=== PATIENT | male | born 1955 | race Caucasian/White ===

== ENCOUNTER → 2020-06-12 | Outpatient (CLI) | payer OTHER ==
--- NOTE | 2020-06-12 13:36 | US ---
EXAMINATION TYPE: US scrotum with doppler. Grayscale and color Doppler Duplex imaging performed of t he scrotum. DATE OF EXAM: 06/12/2020 COMPARISON: NONE Bilateral testicular pain x 4 mos. noted after heavy lifting CLINICAL HISTORY: N50.819 Testicular pain. EXAM MEASUREMENTS: TESTICLES: Right Testicle: 5.2 x 3.4 x 2.5 cm Left Testicle: 5.6 x 3.1 x 2.5 cm EPIDIDYMIS HEAD: Right Epididymis: 0.8 x 1.1 x 1.4 cm Left Epididymis: 1.1 x 1.2 x 1.9 cm Doppler performed to assess for testicular vascularity; good bilateral color flow and waveforms are s een. There is no evidence of testicular torsion. Left complex epididymal head cyst is noted = 0.8 x 0.8 x 1.0cm. Presence of varicoceles is noted bilaterally. IMPRESSION: 1. Bilateral varicoceles. 2. There is a complex 1 cm left epididymal head cyst urology consultation suggested.
== END | disposition home or self-care (01) ==
LOC: RADUSWWP 12:51
DX: I86.1 Scrotal varices (principal); N50.3 Cyst of epididymis
CPT/HCPCS: 76870; 93975

== ENCOUNTER → 2023-11-24 | Outpatient (CLI) | payer OTHER ==
--- NOTE | 2023-11-29 17:23 | MR ---
EXAMINATION TYPE: MR shoulder RT wo con DATE OF EXAM: 11/24/2023 COMPARISON: None HISTORY: 68-year-old male M25.511, Rt shoulder pain TECHNIQUE: Multiplanar, multisequence imaging of the right shoulder is performed without contrast. FINDINGS: There is a longitudinal tear of the intracapsular portion of the lung biceps tendon. Marked abnormal increased signal intensity at the junction with the extracapsular portion. Mild to moderate tenosynov ial fluid along the bicipital groove. Diffusely heterogeneous signal of the subscapularis tendon. There is attenuation of the superior half fibers possibly reflecting underlying tear. Severe degenerative change at the acromioclavicular joint with joint space narrowing and bulky margin al spurring. Trace fluid within the subacromial/subdeltoid bursa. Heterogeneous signal throughout the supraspinatus and infraspinatus tendons with scattered small area s of articular sided bursal sided fraying but no high-grade partial or full-thickness tear. No atrophy of the rotator cuff musculature. There is a small glenohumeral joint effusion. Mild articular cartilage thinning along the superior as pect of the humeral head. Effusion extends to the superior subscapularis recess. There is a tear at the biceps anchor extending to the posterior aspect of the superior labrum. No Hill-Sachs deformity or os acromiale. No suspicious bone marrow replacement. IMPRESSION: 1. Diffuse rotator cuff tendinosis. Suspect partial tear of the superior fibers of the subscapularis tendon though the majority of the tendon remains intact. No rotator cuff muscle atrophy. 2. SLAP tear extending to involve the biceps anchor and intracapsular portion of the long head biceps tendon. 3. Severe AC joint OA.
== END | disposition home or self-care (01) ==
LOC: RADMRIMAIN 13:43
PROVIDERS: ATTEND Family Medicine
DX: M19.011 Primary osteoarthritis, right shoulder (principal); M67.813 Other specified disorders of tendon, right shoulder; M75.111 Incomplete rotator cuff tear or rupture of right shoulder, not specified as traumatic

== ENCOUNTER 2023-12-15 20:20 | Observation (INO) | payer OTHER ==
--- NOTE | 2023-12-15 20:56 | ED ---
General Adult HPI - General Chief complaint: Abdominal Pain Stated complaint: Kidney Stone,Septic Time Seen by Provider: 12/15/23 20:25 Source: patient, EMS Mode of arrival: EMS Limitations: no limitations - History of Present Illness Initial comments: 68-year-old male presents to the emergency department as a transfer from [facility] today for urosepsis. Patient states that around 2:30 AM today he started experiencing some abdominal pain radiating to the left groin. He does have a history of kidney stones. He admits to multiple episodes of vomiting today. He denies fever, chills. Admits to normal bowel movements. He has followed with Dr. Galo in the past. - Related Data Allergies Allergy/AdvReac Type Severity Reaction Status Date / Time Penicillins AdvReac Rash/Hives Verified 12/15/23 20:29 Review of Systems ROS Statement: Those systems with pertinent positive or pertinent negative responses have been documented in the HPI. ROS Other: All systems not noted in ROS Statement are negative. Past Medical History Past Medical History: Hyperlipidemia, Hypertension History of Any Multi-Drug Resistant Organisms: None Reported Past Surgical History: Hernia Repair Past Psychological History: No Psychological Hx Reported Smoking Status: Never smoker Past Alcohol Use History: None Reported Past Drug Use History: None Reported General Exam Limitations: no limitations Course Vital Signs 12/15/23 20:25 Temperature 99.1 F Pulse Rate 108 H Respiratory 18 Rate Blood Pressure 167/87 O2 Sat by Pulse 96 Oximetry Medical Decision Making - Medical Decision Making Was pt. sent in by a medical professional or institution (, ES, PARAEDUCATOR, urgent care, hospital, or fpc...) When possible be specific @ -Patient transferred from [facility] Did you speak to anyone other than the patient for history (EMS, parent, family, police, friend...)? What history was obtained from this source @ -No Did you review nursing and triage notes (agree or disagree)? Why? @ -I reviewed and agree with nursing and triage notes Were old charts reviewed (outside hosp., previous admission, EMS record, old EKG, old radiological studies, urgent care reports/EKG's, fpc records)? Report findings @ -Records from [facility] were reviewed including CBC, CMP, UA, EKG, CT UA shows large blood, moderate bacteria Differential Diagnosis (chest pain, altered mental status, abdominal pain women, abdominal pain men, vaginal bleeding, weakness, fever, dyspnea, syncope, headache, dizziness, GI bleed, back pain, seizure, CVA, palpatations, mental health, musculoskeletal)? @ -Differential Abdominal Pain Men: Appendicitis, cholecystitis, diverticulosis, ischemic bowel, pancreatitis, hepatitis, UTI, gastroenteritis, AAA, incarcerated hernia, bowel obstruction, constipation, inflammatory bowel, hepatitis, peptic ulcer disease, splenic infarction, perforated viscus, testicular torsion, this is not meant to be an all-inclusive list EKG interpreted by me (3pts min.). @ -None X-rays interpreted by me (1pt min.). @ -None done CT interpreted by me (1pt min.). @ -None done U/S interpreted by me (1pt. min.). @ -None done What testing was considered but not performed or refused? (CT, X-rays, U/S, labs)? Why? @ -None What meds were considered but not given or refused? Why? @ -None Did you discuss the management of the patient with other professionals (professionals i.e. , PA, PARAEDUCATOR, lab, RT, psych nurse, social sciences research scientist, paste mixer, teacher, ict customer support officer, case monitor)? Give summary @ -Case discussed with Nima Slaughter with [facility] hospitalist who is accepting of the admission Was smoking cessation discussed for >3mins.? @ -No Was critical care preformed (if so, how long)? @ -No Were there social determinants of health that impacted care today? How? (Homelessness, low income, unemployed, alcoholism, drug addiction, transportatio n, low edu. Level, literacy, decrease access to med. care, half-way, rehab)? @ -No Was there de-escalation of care discussed even if they declined (Discuss DNR or withdrawal of care, Hospice)? DNR status @ -No What co-morbidities impacted this encounter? (DM, HTN, Smoking, COPD, CAD, Cancer, CVA, ARF, Chemo, Hep., AIDS, mental health diagnosis, sleep apnea, morbid obesity)? @ -None Was patient admitted / discharged? Hospital course, mention meds given and route, prescriptions, significant lab abnormalities, going to OR and other pertinent info. @ -Admitted. Patient presented to our emergency department as a transfer from [facility]. Records from [facility] were reviewed. CT scan showed a 4 mm obstructing stone in the left ureter. Patient had a white blood cell count of 12.4. UA showed large blood, moderate bacteria. He was also found to be tachycardic at [facility]. Patient was provided 1 L normal saline and 1 L lactated Ringer's at their facility along with 1 g Rocephin, dose of Toradol, Zofran. Laboratory studies repeated here. CBC shows WBC is 13.3; C MP shows sodium 139, potassium 3.8; UA shows large blood, negative nitrite, negative leukocyte esterase. Patient receiving normal saline at 130 cc/h. Patient will be admitted with urology on consult. Patient stable at time of admission. Case discussed with Nima Slaughter with [facility] was accepting of the admission. Undiagnosed new problem with uncertain prognosis? @ -No Drug Therapy requiring intensive monitoring for toxicity (Heparin, Nitro, Insulin, Cardizem)? @ -No Were any procedures done? @ -No Diagnosis/symptom? @ -Obstructive urolithiasis Acute, or Chronic, or Acute on Chronic? @ -acute Uncomplicated (without systemic symptoms) or Complicated (systemic symptoms)? @ -complicated Side effects of treatment? @ -No Exacerbation, Progression, or Severe Exacerbation? @ -No Poses a threat to life or bodily function? How? (Chest pain, [place], [place], pneumonia, PE, COPD, DKA, ARF, appy, cholecystitis, CVA, Diverticulitis, Homicidal, Suicidal, threat to staff... and all critical care pts) @ -No - Lab Data Result diagrams: 12/15/23 21:14 12/15/23 21:14 Lab Results 12/15/23 12/15/23 12/15/23 Range/Units 21:14 21:14 21:14 WBC 13.3 H (3.8-10.6) k/uL RBC 4.99 (4.30-5.90) m/uL Hgb 15.3 (13.0-17.5) gm/dL Hct 44.9 (39.0-53.0) % MCV 89.9 (80.0-100.0) fL MCH 30.7 (25.0-35.0) pg MCHC 34.1 (31.0-37.0) g/dL RDW 13.5 (11.5-15.5) % Plt Count 209 (150-450) k/uL MPV 7.5 Neutrophils % 90 % Lymphocytes % 6 % Monocytes % 4 % Eosinophils % 0 % Basophils % 0 % Neutrophils # 11.9 H (1.3-7.7) k/uL Lymphocytes # 0.8 L (1.0-4.8) k/uL Monocytes # 0.5 (0-1.0) k/uL Eosinophils # 0.0 (0-0.7) k/uL Basophils # 0.0 (0-0.2) k/uL PT 10.9 (10.0-12.5) sec INR 1.0 (<1.2) APTT 20.3 L (22.0-30.0) sec Sodium 139 (137-145) mmol/L Potassium 3.8 (3.5-5.1) mmol/L Chloride 110 H (98-107) mmol/L Carbon Dioxide 19 L (22-30) mmol/L Anion Gap 10 mmol/L BUN 19 (9-20) mg/dL Creatinine 1.15 (0.66-1.25) mg/dL Est GFR (CKD-EPI)AfAm 75 (>60 ml/min/1.73 sqM) Est GFR (CKD-EPI)NonAf 65 (>60 ml/min/1.73 sqM) Glucose 104 H (74-99) mg/dL Plasma Lactic Acid Prince (0.7-2.0) mmol/L Calcium 8.6 (8.4-10.2) mg/dL Total Bilirubin 1.0 (0.2-1.3) mg/dL AST 20 (17-59) U/L ALT 18 (4-49) U/L Alkaline Phosphatase 73 (38-126) U/L Total Protein 6.3 (6.3-8.2) g/dL Albumin 4.1 (3.5-5.0) g/dL Lipase 51 (23-300) U/L 12/15/23 Range/Units 21:14 WBC (3.8-10.6) k/uL RBC (4.30-5.90) m/uL Hgb (13.0-17.5) gm/dL Hct (39.0-53.0) % MCV (80.0-100.0) fL MCH (25.0-35.0) pg MCHC (31.0-37.0) g/dL RDW (11.5-15.5) % Plt Count (150-450) k/uL MPV Neutrophils % % Lymphocytes % % Monocytes % % Eosinophils % % Basophils % % Neutrophils # (1.3-7.7) k/uL Lymphocytes # (1.0-4.8) k/uL Monocytes # (0-1.0) k/uL Eosinophils # (0-0.7) k/uL Basophils # (0-0.2) k/uL PT (10.0-12.5) sec INR (<1.2) APTT (22.0-30.0) sec Sodium (137-145) mmol/L Potassium (3.5-5.1) mmol/L Chloride (98-107) mmol/L Carbon Dioxide (22-30) mmol/L Anion Gap mmol/L BUN (9-20) mg/dL Creatinine (0.66-1.25) mg/dL Est GFR (CKD-EPI)AfAm (>60 ml/min/1.73 sqM) Est GFR (CKD-EPI)NonAf (>60 ml/min/1.73 sqM) Glucose (74-99) mg/dL Plasma Lactic Acid Prince 1.4 (0.7-2.0) mmol/L Calcium (8.4-10.2) mg/dL Total Bilirubin (0.2-1.3) mg/dL AST (17-59) U/L ALT (4-49) U/L Alkaline Phosphatase (38-126) U/L Total Protein (6.3-8.2) g/dL Albumin (3.5-5.0) g/dL Lipase (23-300) U/L Disposition Clinical Impression: Urolithiasis Disposition: ADMITTED IP TO THIS [facility] Condition: Stable Is patient prescribed a controlled substance at d/c from ED?: No Referrals: Nima Ledezma MD [Primary Care Provider] - 1-2 days
[2023-12-15] MEDS: SODIUM CHLORIDE 0.9% 1,000 ML IV STA (21:13)
[2023-12-15 21:26] LABS: Basophils % (A) 0 %; Eosinophils % (A) 0 %; HCT 44.9 % (39.0-53.0); HGB 15.3 gm/dL (13.0-17.5); Lymphocytes # (A) 0.8 k/uL (1.0-4.8); Lymphocytes % (A) 6 %; MCH 30.7 pg (25.0-35.0); MCHC 34.1 g/dL (31.0-37.0); MCV 89.9 fL (80.0-100.0); Mean Platelet Volume 7.5; Monocytes # (A) 0.5 k/uL (0-1.0); Monocytes % (A) 4 %; Neutrophils # (A) 11.9 k/uL (1.3-7.7); Neutrophils % (A) 90 %; Platelet Count 209 k/uL (150-450); RBC 4.99 m/uL (4.30-5.90); RDW 13.5 % (11.5-15.5); WBC 13.3 k/uL (3.8-10.6)
[2023-12-15 21:37] LABS: ALT 18 U/L (4-49); AST 20 U/L (17-59); African American GFR (CKD) 75 (>60 ml/min/1.73 sqM); Albumin 4.1 g/dL (3.5-5.0); Alkaline Phosphatase 73 U/L (38-126); Anion Gap 10 mmol/L; Blood Urea Nitrogen 19 mg/dL (9-20); Calcium 8.6 mg/dL (8.4-10.2); Carbon Dioxide 19 mmol/L (22-30); Chloride 110 mmol/L (98-107); Glucose 104 mg/dL (74-99); Lipase 51 U/L (23-300); Non-African American GFR(CKD) 65 (>60 ml/min/1.73 sqM); Potassium 3.8 mmol/L (3.5-5.1); Sodium 139 mmol/L (137-145); Total Protein 6.3 g/dL (6.3-8.2)
[2023-12-15 21:41] LABS: Prothrombin Time 10.9 sec (10.0-12.5)
[2023-12-15 22:04] LABS: Partial Thromboplastin Time 20.3 sec (22.0-30.0)
[2023-12-15] MEDS ORDERED: KETOROLAC 15 MG/ML 1 ML VIAL IVP PRN (22:20)
[2023-12-15] MEDS ORDERED: ACETAMINOPHEN TAB 325 MG TAB PO PRN (22:20)
[2023-12-15] MEDS ORDERED: MORPHINE SULFATE 4 MG/ML SYRINGE IV PRN (22:20)
[2023-12-15] MEDS ORDERED: ONDANSETRON 4 MG/2 ML VIAL IVP PRN (22:20)
[2023-12-15] MEDS ORDERED: NALOXONE 0.4 MG/ML 1 ML VIAL IV PRN (22:20)
[2023-12-15 22:42] LABS: Appearance,Urine Clear (Clear); Bacteria,Urine Rare /hpf; Bilirubin,Urine Negative (Negative); Blood,Urine Large (Negative); Color,Urine Light Yellow; Glucose,Urine (UA) Negative (Negative); Ketones,Urine Negative (Negative); Leukocyte Esterase,Urine Negative (Negative); Nitrite,Urine Negative (Negative); Protein,Urine Negative (Negative); RBC,Urine 82 /hpf (0-5); Specific Gravity,Urine 1.028 (1.001-1.035); Urobilinogen,Urine <2.0 mg/dL (<2.0); WBC,Urine 2 /hpf (0-5)
--- NOTE | 2023-12-16 10:22 | P.GSCN ---
History of Present Illness Consult date: 12/16/23 History of present illness: 68-year-old gentleman known to me for kidney stones. In the last 24 hours he developed acute left ureteral colic. He went to [facility] emergency room was identified a 4 mm distal ureteral stone. He was transferred to [facility] where I have seen the patient. Been placed on pain medicine and is relatively comfortable now. He is afebrile. His lactic acid is normal. His white count is 13,000. Computed tomography scan [facility] shows a 4 mm left ureteral stone. Review of Systems All systems: negative - Constitutional Denies fever, Denies weight loss - EENT Eyes: denies blurred vision Ears, nose, mouth and throat: Denies dysphagia - Cardiovascular Denies chest pain, Denies shortness of breath - Respiratory Denies cough, Denies 7 - Gastrointestinal Reports as per HPI - Genitourinary Denies dysuria, Denies hematuria - Integumentary Denies rash, Denies unusual bruising - Neurological Denies headaches, Denies syncope - Hematologic/Lymphatic Denies easy bleeding, Denies easy bruising Past Medical History Past Medical History: Hyperlipidemia, Hypertension History of Any Multi-Drug Resistant Organisms: None Reported Past Surgical History: Hernia Repair Past Psychological History: No Psychological Hx Reported Smoking Status: Never smoker Past Alcohol Use History: None Reported Past Drug Use History: None Reported Medications and Allergies Home Medications Medication Instructions Recorded Confirmed Type Aspirin EC [Ecotrin Low Dose] 81 mg PO DAILY 12/15/23 12/15/23 History Atorvastatin [Lipitor] 40 mg PO HS 12/15/23 12/16/23 History Doxazosin [Cardura] 4 mg PO HS 12/15/23 12/16/23 History Losartan [Cozaar] 50 mg PO DAILY 12/15/23 12/16/23 History Omeprazole 20 mg PO DAILY PRN 12/15/23 12/15/23 History amLODIPine [Norvasc] 10 mg PO DAILY 12/15/23 12/16/23 History hydroCHLOROthiazide [Hydrodiuril] 25 mg PO DAILY 12/15/23 12/16/23 History polyethylene glycoL 3350 [Miralax] 17 gm PO DAILY PRN 12/15/23 12/15/23 History Allergies Allergy/AdvReac Type Severity Reaction Status Date / Time Penicillins Allergy Rash/Hives Verified 12/15/23 23:15 Surgical - Exam Vital Signs Temp Pulse Resp BP Pulse Ox 99.1 F 108 H 18 167/87 96 12/15/23 20:25 12/15/23 20:25 12/15/23 20:25 12/15/23 20:25 12/15/23 20:25 - General well developed, well nourished, no distress - Eyes normal ocular movement, no icteric - ENT no hearing loss, no congestion - Neck no masses, trachea midline - Respiratory normal respiratory effort, clear to auscultation - Abdomen Abdomen: soft, non tender, no guarding, no rigid, no rebound - Integumentary no rash, no abnormal pigmentation - Neurologic no disoriented, no combative - Psychiatric oriented to time, oriented to person, oriented to place, speech is normal, memory intact Results - Labs 12/15/23 21:14 12/15/23 21:14 Abnormal Lab Results - Last 24 Hours (Table) 12/15/23 12/15/23 12/15/23 Range/Units 21:14 21:14 21:14 WBC 13.3 H (3.8-10.6) k/uL Neutrophils # 11.9 H (1.3-7.7) k/uL Lymphocytes # 0.8 L (1.0-4.8) k/uL APTT 20.3 L (22.0-30.0) sec Chloride (98-107) mmol/L Carbon Dioxide (22-30) mmol/L Glucose (74-99) mg/dL Urine Blood Large H (Negative) Urine RBC 82 H (0-5) /hpf Urine Bacteria Rare H (None) /hpf 12/15/23 Range/Units 21:14 WBC (3.8-10.6) k/uL Neutrophils # (1.3-7.7) k/uL Lymphocytes # (1.0-4.8) k/uL APTT (22.0-30.0) sec Chloride 110 H (98-107) mmol/L Carbon Dioxide 19 L (22-30) mmol/L Glucose 104 H (74-99) mg/dL Urine Blood (Negative) Urine RBC (0-5) /hpf Urine Bacteria (None) /hpf Diabetes panel 12/15/23 Range/Units 21:14 Sodium 139 (137-145) mmol/L Potassium 3.8 (3.5-5.1) mmol/L Chloride 110 H (98-107) mmol/L Carbon Dioxide 19 L (22-30) mmol/L BUN 19 (9-20) mg/dL Creatinine 1.15 (0.66-1.25) mg/dL Glucose 104 H (74-99) mg/dL Calcium 8.6 (8.4-10.2) mg/dL AST 20 (17-59) U/L ALT 18 (4-49) U/L Alkaline Phosphatase 73 (38-126) U/L Total Protein 6.3 (6.3-8.2) g/dL Albumin 4.1 (3.5-5.0) g/dL Calcium panel 12/15/23 Range/Units 21:14 Calcium 8.6 (8.4-10.2) mg/dL Albumin 4.1 (3.5-5.0) g/dL Pituitary panel 12/15/23 Range/Units 21:14 Sodium 139 (137-145) mmol/L Potassium 3.8 (3.5-5.1) mmol/L Chloride 110 H (98-107) mmol/L Carbon Dioxide 19 L (22-30) mmol/L BUN 19 (9-20) mg/dL Creatinine 1.15 (0.66-1.25) mg/dL Glucose 104 H (74-99) mg/dL Calcium 8.6 (8.4-10.2) mg/dL Adrenal panel 12/15/23 Range/Units 21:14 Sodium 139 (137-145) mmol/L Potassium 3.8 (3.5-5.1) mmol/L Chloride 110 H (98-107) mmol/L Carbon Dioxide 19 L (22-30) mmol/L BUN 19 (9-20) mg/dL Creatinine 1.15 (0.66-1.25) mg/dL Glucose 104 H (74-99) mg/dL Calcium 8.6 (8.4-10.2) mg/dL Total Bilirubin 1.0 (0.2-1.3) mg/dL AST 20 (17-59) U/L ALT 18 (4-49) U/L Alkaline Phosphatase 73 (38-126) U/L Total Protein 6.3 (6.3-8.2) g/dL Albumin 4.1 (3.5-5.0) g/dL - Imaging CT scan - abdomen: report reviewed, image reviewed CT scan - pelvis: report reviewed, image reviewed Assessment and Plan Assessment: Impression: Left ureteral calculus, 4 mm with pain and obstruction Recommendations: The patient is given the option of different types of treatment including spontaneous passage ureteroscopy or shockwave lithotripsy. He has been nothing by mouth. We will proceed with left ureteroscopy laser lithotrips y.
[2023-12-16 11:08] LABS: Basophils % (A) 0 %; Eosinophils # (A) 0.3 k/uL (0-0.7); Eosinophils % (A) 3 %; HCT 42.7 % (39.0-53.0); Lymphocytes # (A) 1.2 k/uL (1.0-4.8); Lymphocytes % (A) 13 %; MCH 31.3 pg (25.0-35.0); MCHC 35.1 g/dL (31.0-37.0); MCV 89.2 fL (80.0-100.0); Mean Platelet Volume 7.4; Monocytes # (A) 0.5 k/uL (0-1.0); Monocytes % (A) 6 %; Neutrophils # (A) 7.3 k/uL (1.3-7.7); Neutrophils % (A) 77 %; Platelet Count 223 k/uL (150-450); RBC 4.79 m/uL (4.30-5.90); RDW 14.2 % (11.5-15.5); WBC 9.6 k/uL (3.8-10.6)
[2023-12-16 11:24] LABS: African American GFR (CKD) 76 (>60 ml/min/1.73 sqM); Anion Gap 7 mmol/L; Blood Urea Nitrogen 24 mg/dL (9-20); Calcium 8.4 mg/dL (8.4-10.2); Carbon Dioxide 23 mmol/L (22-30); Chloride 111 mmol/L (98-107); Glucose 90 mg/dL (74-99); Magnesium 2.1 mg/dL (1.6-2.3); Non-African American GFR(CKD) 66 (>60 ml/min/1.73 sqM); Potassium 3.5 mmol/L (3.5-5.1); Sodium 141 mmol/L (137-145)
[2023-12-16] MEDS ORDERED: PANTOPRAZOLE 40 MG TABLET PO PRN (11:56)
[2023-12-16] MEDS ORDERED: polyethylene glycoL 3350 17 GM POWD.PACK PO PRN (11:56)
[2023-12-16] MEDS: IV FLUID CONTINUATION 1,000 ML IV ONE (14:40)
[2023-12-16] MEDS ORDERED: MIDAZOLAM 2 MG/2 ML VIAL ONE (14:57)
[2023-12-16] MEDS ORDERED: fentaNYL (PF) 50 MCG/ML 2 ML AMP ONE (14:57)
[2023-12-16] MEDS ORDERED: KETOROLAC 15 MG/ML 1 ML VIAL ONE (14:57)
[2023-12-16] MEDS ORDERED: PROPOFOL 10 MG/ML 20 ML VIAL IV ONE (14:57)
[2023-12-16] MEDS ORDERED: PHENYLEPHRINE 10 MG/ML VIAL ONE (14:57)
[2023-12-16] MEDS ORDERED: LIDOCAINE 1% INJ 10MG/ML (20 ML MDV) ONE (14:57)
[2023-12-16] MEDS: DEXAMETHASONE SOD PHOSPHATE 4 MG/ML 1 ML VIAL IVP ONE (14:58)
[2023-12-16] MEDS: ONDANSETRON 4 MG/2 ML VIAL IVP ONE (14:58)
[2023-12-16] MEDS: IOPAMIDOL-370 100ML BTL INJ ONE (15:21)
--- NOTE | 2023-12-16 15:59 | P.OP ---
Date of Procedure: 12/16/23 Preoperative Diagnosis: Left ureteral calculus with obstruction Postoperative Diagnosis: Thoughts the same Procedure(s) Performed: Cystoscopy, left retrograde pyelogram, left ureteroscopy, dilation of ureter , placement of 626 stent Anesthesia: HYUN Surgeon: Stephen Galo Estimated Blood Loss (ml): 0 Pathology: none sent Condition: stable Disposition: PACU Indications for Procedure: Patient presented this morning with a 4 mm midureteral stone upon transfer from [facility]. The stone is in the left ureter causing colic. I was asked see the patient. By the time I saw the patient he was feeling better. We discussed treatment options including spontaneous passage versus stone manipulation. He wants the stone out he does comes for ureteroscopy and stone manipulation. Description of Procedure: Patient brought to the operating suite. Given a general anesthetic. Cystoscopy of the Foroblique lens and 21-Chinese sheath identifies a normal urethra. The prostate shows some obstruction. The bladder sewell intubated. The mucosa is u nremarkable. The left ureteral orifice is small. Within a cone-tipped catheter a left retrograde pyelogram was performed. There appears to be 2 areas of obstruction one just below the iliac vessels and one above the iliac vessels consistent with stone. I attempted dilate the ureter with a cone-tipped catheter. I then pass a semirigid ureteroscope into the intramural tunnel is too tight to accept the scope. I removed the ureteroscope I passed an 035 wire up the ureter. I then attempted to pass a 84-51-Yhgjtl reentry sheath and the fail. I then pass dilating balloon, 6-18-Chinese. I dilate the intramural tunnel. There is a very tight waist at the entrance of the ureter to the intramural tunnel on the left side as well as the ureteral meatus. Once I'm able to dilate that I then pass a semirigid ureteroscope into the ureter but it is still too tight to advance the scope far enough for successful ureteroscopy without damaging the ureter. I thus terminate the procedure. Backloaded the wire onto the cystoscope. I then passed a 6 x 26 double-J catheter up the left ureter in the renal pelvis and the bladder the bladder strain the patient is awakened and returned recovery room good condition Impression probable left ureteral calculus. Very tight delicate ureter unable to accept traditional instrumentation. Successful placement of double-J catheter Recommendations: The catheter will stay in place about 3 weeks before I attempted another passage of the scope. The purpose of this would be to dilate the ureter. This will be explained to the patient' when he is awake. There is no family here. Patient is in good condition. He is awake and returned recovery room good condition.
--- NOTE | 2023-12-16 17:45 | FL ---
EXAMINATION TYPE: FL urography retrograde Intraoperative/procedural fluoroscopic services were provid ed. Total fluoroscopy time is I minute 37 seconds with a total of 5 submitted images to PACS. Please see the operative/procedural note for further details. DAP: 21.81 Gycm2
--- NOTE | 2023-12-16 20:10 | HP ---
HISTORY AND PHYSICAL CHIEF COMPLAINT: Abdominal pain. HISTORY OF PRESENT ILLNESS: This is a 68-year-old gentleman with a past medical history of hypertension, hyperlipidemia, was admitted with severe left abdominal pain radiating to the groin and assess possible urosepsis. The was transferred from [facility]. The patient is evaluated by Urology for left ureteral colic. The white count is elevated, left ureter calculus 4 mm was noted and Urology is planning ureteroscopy with lithotripsy. PAST MEDICAL HISTORY: Reviewed include hypertension, rest of the history and chart is also reviewed. HOME MEDICATIONS: Reviewed include HydroDIURIL, dose and rest of medications reviewed. ALLERGIES: Penicillin. FAMILY HISTORY: No history of heart disease or strokes in the family. SOCIAL HISTORY: No history of smoking or alcohol. REVIEW OF SYSTEMS: A 14-point review is negative except as mentioned earlier. PHYSICAL EXAMINATION: VITAL SIGNS: Pulse 94, blood pressure 157/60, respirations 20. CHEST: Clear to auscultation. CARDIOVASCULAR: S1, S2. ABDOMEN: Soft, mild diffuse discomfort on the left side, otherwise no masses palpated. NERVOUS SYSTEM: Nonfocal. LABORATORY DATA: Reviewed. ASSESSMENT: 1. Acute left renal colic secondary to ureterolithiasis. 2. Elevated WBC. 3. Rule out UTI and sepsis. 4. Hypertension. 5. Hyperlipidemia. RECOMMENDATIONS AND DISCUSSION: This 68-year-old gentleman presented with multiple complex medical issues, we will monitor the patient closely. I would recommend symptomatic treatment with pain medications. Otherwise, I would also recommend empiric antibiotics. Obtain cultures. Closely follow with Urology. Further recommendations to follow. MMODL / IJN: [id number] /
[2023-12-16] MEDS: ATORVASTATIN 40 MG TAB PO SCH (21:04)
[2023-12-16] MEDS: DOXAZOSIN 4 MG TAB PO SCH (21:04)
[2023-12-16 21:24] VITALS: RESP 18
[2023-12-17 07:48] VITALS: BP 144/86; PULSE 85; TEMP 99
--- NOTE | 2023-12-17 07:54 | P.PN ---
Subjective Progress Note Date: 12/17/23 The patient is in the hospital with a left ureteral stone. Underwent a failed attempt to remove the stone yesterday due to ureteral issues[see op note]. He is good this am. Objective - Vital Signs Vital signs: Vital Signs Temp 99.0 F 12/17/23 06:47 Pulse 85 12/17/23 06:47 Resp 18 12/17/23 06:47 BP 144/86 12/17/23 06:47 Pulse Ox 95 12/17/23 06:47 FiO2 Intake & Output 12/16/23 12/17/23 12/17/23 18:59 06:59 18:59 Intake Total 800 Balance 800 Weight 98.883 kg Intake: IV 800 Other: Voiding Method Urinal Toilet # Voids 2 4 # Bowel Movements 1 - Labs CBC & Chem 7: 12/16/23 10:39 12/16/23 10:39 Labs: Abnormal Lab Results - Last 24 Hours (Table) 12/16/23 Range/Units 10:39 Chloride 111 H (98-107) mmol/L BUN 24 H (9-20) mg/dL Assessment and Plan Assessment: Impression: Left ureteral stone with stent. Plan: Will allow the stent to dilate the ureter and in about 3 weeks I will do a left ureteroscopy with laser lithotripsy and stent removal
[2023-12-17] MEDS: LOSARTAN 50 MG TAB PO SCH (09:12)
[2023-12-17] MEDS: amLODIPine 10 MG TAB PO SCH (09:12)
[2023-12-17] MEDS: hydroCHLOROthiazide 25 MG TAB PO SCH (09:12)
[2023-12-17 10:19] LABS: Basophils # (A) 0.02 X 10*3/uL (0.00-0.10); Basophils % (A) 0.2 %; Eosinophils # (A) 0.01 X 10*3/uL (0.04-0.35); Eosinophils % (A) 0.1 %; HCT 42.2 % (39.6-50.0); HGB 14.5 g/dL (13.0-17.0); Lymphocytes # (A) 0.84 X 10*3/uL (0.90-5.00); Lymphocytes % (A) 7.9 %; MCH 30.9 pg (27.0-32.0); MCHC 34.4 g/dL (32.0-37.0); MCV 89.8 FL (80.0-97.0); Mean Platelet Volume 9.8 FL (9.5-12.2); Monocytes # (A) 0.57 X 10*3/uL (0.20-1.00); Monocytes % (A) 5.3 %; NRBC Per 100 WBC 0 X 10*3/uL (0.00-0.01); Neutrophils # (A) 9.21 X 10*3/uL (1.80-7.70); Neutrophils % (A) 86.1 %; Platelet Count 209 X 10*3/uL (140-440); RDW 13.5 % (11.5-14.5); WBC 10.69 X 10*3/uL (4.50-10.00)
[2023-12-17 10:40] LABS: BUN/Creat Ratio 23.64 Ratio (12.00-20.00); Calcium 8.6 mg/dL (8.7-10.3); Carbon Dioxide 19.9 mmol/L (21.6-31.8); Chloride 108 mmol/L (96-109); Glucose 128 mg/dL (70-110); Potassium 3.7 mmol/L (3.5-5.5); Sodium 140 mmol/L (135-145)
--- NOTE | 2023-12-17 13:26 | P.DS ---
Providers Date of admission: 12/15/23 22:22 Expected date of discharge: 12/17/23 Attending physician: Elizabeth Tracy Consults: 12/15/23 22:20 Consult Physician Routine Consulting Provider: Stephen Galo Reason/Comments: obstructing ureteral stone Do you want consulting provider notified?: Yes, Notify in am Primary care physician: Nima Ledezma Hospital Course: Final diagnosis Acute left renal colic secondary to ureteralithiasis status post left stent placement and unsuccessful extraction of stone Possible acute urinary tract infection, present on admission, ruled out Hypertension history Hyperlipidemia history Leukocytosis, likely secondary to assessment #1, trending down Obesity with a BMI 31.3 GI prophylaxis DVT prophylaxis Full code Discharge disposition Patient is being discharged in a stable condition with guarded prognosis to home. Patient will follow-up with Dr. Ledezma in the outpatient setting upon discharge. Patient is to continue with oral Ceftin twice daily for the next 3 days as well as close outpatient follow-up with urology as scheduled. Total time taken is greater than 35 minutes. Hospital course This is a 68-year-old male who was recently admitted with CVA tenderness with concerns of left ureteral stone status post attempted stone removal and had a stent placed with urology. Patient to follow-up with urology in the outpatient setting in the next 2 to 3 weeks for possible stone extraction and removal of the stent. Patient is voiding and initially had some blood-tinged urine although is clearing up. Patient reports to feeling improved and will be going home today. Please refer to urology notes for further HPI. Patient instructed to follow-up with primary care provider on discharge as well. Encouraged fluids and rest. Currently no reports of chest pain, shortness of breath, or palpitations. Patient is afebrile. No reports of nausea or vomiting and patient is tolerating diet. Patient will be discharged home today. Physical exam: Gen: This is a 68-year-old male who is awake, alert and oriented x 3, well- developed, well-nourished, obese HEENT: Head is atraumatic, normocephalic. Pupils equal, round. Sclerae is anicteric. NECK: Supple. No JVD. No lymphadenopathy. No thyromegaly. LUNGS: Clear to auscultation. No wheezes or rhonchi. No intercostal retractions. HEART: Regular rate and rhythm. No murmur. ABDOMEN: Soft. Obese. Nontender. Bowel sounds are present. No masses. EXTREMITIES: No pedal edema. No calf tenderness. NEUROLOGICAL: Patient is awake, alert and oriented x3. Cranial nerves 2 through 12 are grossly intact. Please refer to medication reconciliation sheet for a list of medications. The impression and plan of care has been dictated by Trupti Beyer, Nurse Practitioner as directed. Dr. Zachary MD I have performed a history and examination and MDM of this patient, discussed the same with the dictator, and agree with the dictator's assessment and plan as written ,documented as a scribe. Based on total visit time, I have performed more than 50% of the visit. Patient Condition at Discharge: Stable Plan - Discharge Summary Discharge Rx Participant: No New Discharge Prescriptions: New Acetaminophen Tab [Tylenol] 650 mg PO Q6HR PRN tab PRN Reason: Mild Pain Or Fever > 100.5 cefUROXime axetiL [Ceftin] 500 mg PO BID 3 Days #6 tab Continue Omeprazole 20 mg PO DAILY PRN PRN Reason: acid reflux Atorvastatin [Lipitor] 40 mg PO HS hydroCHLOROthiazide [Hydrodiuril] 25 mg PO DAILY amLODIPine [Norvasc] 10 mg PO DAILY Doxazosin [Cardura] 4 mg PO HS Aspirin EC [Ecotrin Low Dose] 81 mg PO DAILY Losartan [Cozaar] 50 mg PO DAILY polyethylene glycoL 3350 [Miralax] 17 gm PO DAILY PRN PRN Reason: Constipation Discharge Medication List Aspirin EC [Ecotrin Low Dose] 81 mg PO DAILY 12/15/23 [History] Atorvastatin [Lipitor] 40 mg PO HS 12/15/23 [History] Doxazosin [Cardura] 4 mg PO HS 12/15/23 [History] Losartan [Cozaar] 50 mg PO DAILY 12/15/23 [History] Omeprazole 20 mg PO DAILY PRN 12/15/23 [History] amLODIPine [Norvasc] 10 mg PO DAILY 12/15/23 [History] hydroCHLOROthiazide [Hydrodiuril] 25 mg PO DAILY 12/15/23 [History] polyethylene glycoL 3350 [Miralax] 17 gm PO DAILY PRN 12/15/23 [History] Acetaminophen Tab [Tylenol] 650 mg PO Q6HR PRN tab 12/17/23 [Rx] cefUROXime axetiL [Ceftin] 500 mg PO BID 3 Days #6 tab 12/17/23 [Rx] Follow up Appointment(s)/Referral(s): Nima Ledezma MD [Primary Care Provider] - 12/21/23 11:30 am Stephen Galo MD [STAFF PHYSICIAN] - 12/28/23 9:20 am (Needs to contact office to update [facility].) Patient Instructions/Handouts: Ureteral Stones (DC) Activity/Diet/Wound Care/Special Instructions: Activity limited until follow-up Follow-up with primary care provider on discharge Follow-up with urology outpatient in 2 to 3 weeks as discussed Continue taking antibiotics for 3 days to complete the course Encourage fluids and rest and monitor for any fevers or worsening urinary symptoms, use Tylenol as needed Discharge Disposition: HOME SELF-CARE
== END 2023-12-17 13:08 | disposition home or self-care (01) ==
LOC: EC 20:20 → 6NMEDSUR 22:22 → 4SSUR 12-16 08:39
PROVIDERS: ADMIT Hospitalist; ATTEND Hospitalist
DX: N20.1 Calculus of ureter (principal); N23 Unspecified renal colic; D72.829 Elevated white blood cell count, unspecified; I10 Essential (primary) hypertension; E78.5 Hyperlipidemia, unspecified; E66.9 Obesity, unspecified; Z68.31 Body mass index [BMI] 31.0-31.9, adult; Z87.442 Personal history of urinary calculi; Z79.82 Long term (current) use of aspirin; Z79.899 Other long term (current) drug therapy; Z88.0 Allergy status to penicillin
CPT/HCPCS: 96366; 96365; 99285; 36415; 80053; 80048 ×2; 83605; 83690; 83735; 85025 ×3; 85610; 85730; 81001; 87040; 87086; 74420; 52332; G0378 ×4; C2625; C1758; C1769; J2250; J1100; J2405; J2001; J0696 ×2; J3010; J1885; J2704; Q9967; J2371

== ENCOUNTER → 2023-12-22 | Outpatient (CLI) | payer OTHER ==
--- NOTE | 2023-12-27 14:36 | MR ---
EXAMINATION TYPE: MR shoulder LT wo con DATE OF EXAM: 12/22/2023 COMPARISON: No radiographic correlation available HISTORY: 68-year-old male M25.512, Left shoulder pain TECHNIQUE: Multiplanar, multisequence imaging of the left shoulder is performed without contrast. FINDINGS: There is abnormal intrinsic signal within the intracapsular portion of the long head biceps tendon, s uspect interstitial or partial thickness split tearing. Slight medial subluxation along the upper bic ipital groove is also present. Concurrent thickening and heterogeneity of the subscapularis tendon suggesting attritional tear. Emiliano tional intrasubstance tear of the inferior third fibers at the footprint. Moderate to severe degenerative change of the acromioclavicular joint with joint space narrowing, pro minent marginal spurring, capsular hypertrophy. Some subchondral cystic changes also present. Promine nt inferior spurring contacts the underlying myotendinous junction of the supraspinatus. There is bursal sided fraying throughout the supraspinatal tendon with a high-grade bursal sided tear of the anterior to mid fibers measuring 1.1 cm long and 1.3 cm AP. A few articular sided fibers may remain here. Heterogeneous signal throughout the remainder of the supraspinatus and infraspinatus tendons. No atrophy of the rotator cuff musculature. There is subtle edema within the teres minor which may be idiopathic or could reflect quadrilateral s pace syndrome. The glenohumeral joint appears intact without significant joint effusion. However, there is irregularity of the superior labrum. Possible tiny 5 mm paralabral cyst anterior palmer perior quadrant. Tear may extend 180 degrees along the superior half of the glenoid. No Hill-Sachs deformity or os acromiale. Patchy red marrow can be seen in the setting of anemia, obes ity, smoking, chronic disease. IMPRESSION: 1. Diffuse rotator cuff tendinosis. There is a high-grade bursal sided tear of the anterior supraspin atus tendon measuring 1.1 x 1.3 cm. Only a few articular sided fibers remain here. 2. Severe tendinosis especially of the subscapularis tendon. There is some attritional tearing and in trasubstance tearing but the majority of the tendon appears intact. 3. Additional marked long head biceps tendinosis with either partial-thickness split tears versus int erstitial tears. 4. Moderate to severe AC joint OA with subacromial impingement. 5. Suggestion of a superior paralabral tear which may extend 180 degrees with a small 5 mm anterior p aralabral cyst.
== END | disposition home or self-care (01) ==
LOC: RADMRIMAIN 13:54
PROVIDERS: ATTEND Family Medicine
DX: M19.012 Primary osteoarthritis, left shoulder (principal); M25.812 Other specified joint disorders, left shoulder; M67.814 Other specified disorders of tendon, left shoulder

== ENCOUNTER → 2024-09-23 | Outpatient (CLI) | payer OTHER ==
--- NOTE | 2024-09-23 15:34 | US ---
EXAMINATION TYPE: US scrotum with doppler. DATE OF EXAM: 09/23/2024 COMPARISON: 06/12/20 CLINICAL INDICATION: Male, 69 years old with history of N50.819 TESTICULAR PAIN; testicular pain on r t side TECHNIQUE: Grayscale, color Doppler and spectral Doppler imaging of the scrotum. FINDINGS: EXAM MEASUREMENTS: TESTICLES: Right Testicle: 5.6 x 3.8 x 2.2 cm Left Testicle: 5.6 x 2.7 x 2.5 cm EPIDIDYMIS HEAD: Right Epididymis: 0.9 cm Left Epididymis: 1.1 cm Doppler performed to assess for testicular vascularity; good bilateral color flow and spectral wavefo alexander are seen. There is no evidence of testicular torsion. Presence of hydroceles: no Presence of varicoceles: yes bilaterally tubular ectasia of the rete testes seen in bilateral testicles IMPRESSION: 1. Varicocele seen bilaterally. 2. Tubular ectasia. [facility], , 09/23/2024 3:31 PM
== END | disposition home or self-care (01) ==
LOC: RADUSWWP 14:02
PROVIDERS: ATTEND Family Medicine
DX: I86.1 Scrotal varices (principal); D29.20 Benign neoplasm of unspecified testis; N50.89 Other specified disorders of the male genital organs
CPT/HCPCS: 76870; 93975

== ENCOUNTER → 2025-04-18 | Outpatient (CLI) | payer OTHER ==
--- NOTE | 2025-04-18 11:49 | US ---
EXAMINATION TYPE: US carotid duplex BILAT DATE OF EXAM: 04/18/2025 COMPARISON: NONE CLINICAL INDICATION: Male, 70 years old with history of I25.10 ATHEROSCLEROTIC HEART DISEASE; stenosi s Additional History: .... TECHNIQUE: Grayscale, color Doppler and spectral Doppler evaluation of the bilateral carotid systems and vertebral arteries. Indirect Doppler criteria was utilized. FINDINGS: EXAM MEASUREMENTS: RIGHT: Peak Systolic Velocity (PSV) cm/sec ----- Right CCA: 105 ----- Right ICA: 140 ----- Right ECA: 194 ICA/CCA ratio: 1.3 RIGHT: End Diastole cm/sec ----- Right CCA: 14.9 ----- Right ICA: 20.8 ----- Right ECA: 15.2 LEFT: Peak Systolic Velocity (PSV) cm/sec ----- Left CCA: 137 ----- Left ICA: 103 ----- Left ECA: 141 ICA/CCA ratio: 0.8 LEFT: End Diastole cm/sec ----- Left CCA: 19 ----- Left ICA: 27.2 ----- Left ECA: 7.2 VERTEBRALS (direction of flow): Right Vertebral: Antegrade Left Vertebral: Antegrade Rhythm: Normal [employer] NOTES: No significant stenosis seen Color Doppler imaging shows patency with blood flow throughout the carotid artery. Spectral waveforms are within normal limits. IMPRESSION: Right: Less than 50% stenosis of the carotid bifurcation. Left: Less than 50% stenosis of the carotid bifurcation. Criteria for Assigning % of Stenosis / Diameter reduction (Estimation based on the indirect measurements of the internal carotid artery velocities (ICA PSV). 1. Normal (no stenosis)=ICA PSV < 180 cm/s: ratio < 2.0: ICA EDV<40 cm/s. 2. Less than 50% stenosis=ICA PSV < 180 cm/s: ratio < 2.0: ICA EDV<40 cm/s. 3. 50 to 69% stenosis=ICA PSV of 180 to 230 cm/s: ration 2.0 ? 4.0: ICA EDV 40-100 cm/s. PSV 125-180 cm/sec and ICA/CCA PSV Ratio ? 2.0 is also consistent with 50-69% stenosis 4. Greater than 70% stenosis to near occlusion= ICA PSV > 230 cm/s: ratio > 4.0: ICA EDV > 100 cm/s. 5. Near occlusion= ICA PSV velocities may be low or undetectable: variable ratio and ICA EDV. 6. Total occlusion=unable to detect flow. [facility], , 04/18/2025 11:47 AM
== END | disposition home or self-care (01) ==
LOC: RADUSWWP 10:10
PROVIDERS: ATTEND Family Medicine
DX: I25.10 Atherosclerotic heart disease of native coronary artery without angina pectoris (principal); I65.23 Occlusion and stenosis of bilateral carotid arteries
CPT/HCPCS: 93880

== ENCOUNTER → 2025-04-24 | Outpatient (CLI) | payer OTHER ==
--- NOTE | 2025-04-24 22:27 | MR ---
EXAMINATION TYPE: MR cervical spine wo con DATE OF EXAM: 04/24/2025 4:47 PM COMPARISON: None. CLINICAL INDICATION: Male, 70 years old with history of M54.2 CERVICALGIA, Neck pain, decreased ROM. TECHNIQUE: Multiplanar multiecho imaging on a 3.0 Mya magnet is performed through the cervical spin e. IV Contrast: mL (None, if empty) FINDINGS: The craniovertebral junction is normal. Vertebral body alignment is normal. C7-T1: No focal disc herniation or significant disc bulge is evident. No spinal canal stenosis or n eural foraminal stenosis is present. C6-7: There is a left paracentral moderate-sized disc herniation with moderate anterior thecal sac co mpression posterior to C7. A larger component in the left paracentral canal and extends posterior to the C6 level with moderate anterior thecal sac compression and cord deformity.. This has cord contact and mild cord deformity. No AP spinal canal stenosis is present neural foramen are patent. C5-6: Broad-based disc bulge has mild anterior thecal sac compression. No AP spinal canal stenosis pr esent. Moderate foraminal narrowing is present on the right. More severe foraminal narrowing is prese nt on the left. C4-5: Broad-based disc bulge is present. A more central protrusion has moderate anterior thecal sac c ompression with mild cord contact. Subligamentous disc extension extends superiorly No AP spinal andre l stenosis is present. No cord deformity is evident. Moderate right foraminal narrowing is present. C3-4: There is a central and right paracentral disc herniation with moderate anterior thecal sac comp ression. Cord contact is present without cord deformity. No AP spinal canal stenosis. Neural foramen are patent. Subligamentous disc extension extends superiorly. C2-3: Central disc protrusion is present with moderate anterior thecal sac compression. No cord conta ct is evident. No spinal canal stenosis or neural foraminal stenosis evident. IMPRESSION: 1. Central disc protrusions and bulges with moderate anterior thecal sac compression at C2-3 This has subligamentous disc extension superiorly. 2. Central right paracentral disc herniation with moderate anterior thecal sac compression at C3-4. C ord contact without deformity is present. 3. Broad-based disc bulge at C4-5 has moderate anterior thecal sac compression subligamentous disc ex tension superiorly. 4. Broad-based disc bulge C5-6 mild anterior thecal sac compression. 5. Large left paracentral disc herniation C6-7 with the larger portion posterior C6 left paraspinal r egion has significant anterior thecal sac compression with cord compression deformity [facility], , 04/24/2025 10:24 PM
== END | disposition home or self-care (01) ==
LOC: RADMRIMAIN 15:02
PROVIDERS: ATTEND Family Medicine
DX: M50.321 Other cervical disc degeneration at C4-C5 level (principal); M50.223 Other cervical disc displacement at C6-C7 level
CPT/HCPCS: 72141